=== PATIENT | male | born 1940 | race Caucasian/White ===

== ENCOUNTER 2018-12-11 12:10 | Emergency (ER) | payer MEDICARE ==
[2018-12-11 12:17] VITALS: BMI 24.3
[2018-12-11 12:22] VITALS: RESP 20; O2SAT 98
--- NOTE | 2018-12-11 13:20 | CT ---
Date of service: 12/11/2018 PROCEDURE: CT HEAD WITHOUT CONTRAST. HISTORY: s/p fall, head injury COMPARISON: Not available TECHNIQUE: Axial computed tomography images were obtained through the head/brain without intravenous contrast. Radiation dose: Total exam DLP = 868.15 mGy-cm. This CT exam was performed using one or more of the following dose reduction techniques: Automated exposure control, adjustment of the mA and/or kV according to patient size, and/or use of iterative reconstruction technique. FINDINGS: HEMORRHAGE: No intracranial hemorrhage. BRAIN: No mass effect or edema. Mild patchy periventricular and deep white matter lucency consistent with chronic microvascular ischemic change. No evidence of acute infarct. VENTRICLES: Unremarkable. No hydrocephalus. CALVARIUM: Unremarkable. PARANASAL SINUSES: Unremarkable as visualized. No significant inflammatory changes. MASTOID AIR CELLS: Unremarkable as visualized. No inflammatory changes. OTHER FINDINGS: None. IMPRESSION: No intracranial hemorrhage. Age related chronic white matter ischemic change. Otherwise unremarkable examination.
--- NOTE | 2018-12-11 13:47 | C.PDOC ---
History Of Present Illness 78 y/o male pt presents to the ER c/o slip and fall injury in his bath tub. Pt hit his right side of his forehead on the tub and right elbow. Pt denies LOC, headache, dizziness, visual changes, chest pain, SOB and palpitations. - HPI Time Seen by Provider: 12/11/18 12:13 Chief Complaint (Nursing): Trauma History Per: Patient History/Exam Limitations: no limitations Past Medical History Reviewed: Historical Data, Nursing Documentation, Vital Signs Vital Signs: Last Vital Signs Temp 98.1 F 12/11/18 12:17 Pulse 68 12/11/18 12:17 Resp 20 12/11/18 12:17 BP 179/90 H 12/11/18 12:17 Pulse Ox 98 12/11/18 12:17 Primary Care Provider: Prakash Wilson - Medical History PMH: HTN, Hypothyroidism Surgical History: Endoscopy Family History: States: No Known Family Hx - Social History Hx Alcohol Use: No Hx Substance Use: No - Immunization History Hx Tetanus Toxoid Vaccination: No Hx Influenza Vaccination: No Hx Pneumococcal Vaccination: No Review Of Systems Constitutional: Positive for: Other (right side of forehead injury ) Eyes: Negative for: Vision Change Cardiovascular: Negative for: Chest Pain, Palpitations Respiratory: Negative for: Shortness of Breath Musculoskeletal: Positive for: Other (right elbow injury ) Neurological: Negative for: Headache, Dizziness, Other (LOC) Physical Exam - Physical Exam Appears: Non-toxic, No Acute Distress Skin: Warm, Dry Head: Normacephalic, No Swelling, No Abrasion, No Laceration, Other (mild ecchymosis on the right forehead ) Eye(s): bilateral: PERRL, EOMI Nose: Normal, No Epistaxis Oral Mucosa: Moist Tongue: Normal Appearing, No Laceration Lips: Normal Appearing, No Laceration Gingiva: Normal Appearing Throat: Normal Neck: Normal ROM, Supple Chest: Symmetrical, No Deformity, No Tenderness, No Ecchymosis Cardiovascular: Rhythm Regular Respiratory: Normal Breath Sounds Gastrointestinal/Abdominal: Soft, No Tenderness Back: No CVA Tenderness Extremity: Normal ROM (FROM), Capillary Refill <2 Sec, No Deformity, No Swelling, Other (right elbow 2cm laceration ) Pulses: Right Radial: Normal Neurological/Psych: Oriented x3, Normal Speech, Normal Cognition, Normal Motor, Normal Sensation ED Course And Treatment O2 Sat by Pulse Oximetry: 98 (RA) Pulse Ox Interpretation: Normal - CT Scan/US ct head Other Rad Studies (CT/US): Read By Radiologist, Radiology Report Reviewed CT/US Interpretation: Accession No. : [id number]. Patient Name / ID : JOSE MONET / [id number]. Exam Date : 12/11/2018 12:55:34 ( Approved ). Study Comment : Sex / Age : M / 78Y. Creator : Linda Glasgow. Dictator : Prashanth Archuleta MD. Patient Navigator : Metal Hanger : Prashanth Archuleta MD. Approver2 : Report Date : 12/11/2018 12:59:57. My Comment : . Date of service: 12/11/2018. PROCEDURE: CT HEAD WITHOUT CONTRAST. HISTORY: s/p fall, head injury. COMPARISON: Not available. TECHNIQUE: Axial computed tomography images were obtained through the head/brain without i ntravenous contrast. Radiation dose: Total exam DLP = 868.15 mGy-cm. This CT exam was performed using one or more of the following dose reduction techniques: Automated exposure control, adjustment of the mA and/or kV according to patient size, and/or use of iterative reconstruction technique. FINDINGS: HEMORRHAGE: No intracranial hemorrhage. BRAIN: No mass effect or edema. Mild patchy per iventricular and deep white matter lucency consistent with chronic microvascular ischemic change. No evidence of acute infarct. VENTRICLES: Unremarkable. No hydrocephalus. CALVARIUM: Unremarkable. PARANASAL SINUSES: Unremarkable as visualized. No significant inflammatory changes. MASTOID AIR CELLS: Unremarkable as visualized. No inflammatory changes. OTHER FINDINGS: None. IMPRESSION: No intracranial hemorrhage. Age related chronic white matter ischemic change. Otherwise unremarkable examination. Progress Note: Plans: -- CT head. -- bacitracin. -- lidocaine 1%. -- laceration repair. Pharmacy was called to confrim that pt is not on any blood thinners. Laceration - Laceration Repair RIGHT ELBOW Wound Length (In cm): 2CM Description Of Wound: Linear Wound Cleansed With: Betadine Anesthesia: Lidocaine 1% (approx 4ml) Wound Examination: Irrigated With Saline, No FB With Wound Exploration Suture Technique And Material Used: Interrupted, Nylon (4 ethilon 4.0) Wound Complexity: Simple Disposition Counseled Patient/Family Regarding: Studies Performed, Diagnosis, Need For Followup, Rx Given - Disposition Referrals: Prakash Wilson MD [Staff Provider] - Disposition: HOME/ ROUTINE Disposition Time: 15:30 Condition: STABLE Additional Instructions: SUTURE REMOVAL IN 7-10 DAYS FOLLOW UP WITH YOUR DOCTOR IN 1-2 DAYS RETURN TO ER IF YOU HAVE ANY CONCERNING SYMPTOMS Instructions: Closed Head Injury (DC), Laceration Repair With Stitches (DC) Forms: [employer]Writer (Turkmen) Print Language: BURUNDIAN - Clinical Impression Clinical Impression: Closed head injury, Laceration of right elbow - Scribe Statement The provider has reviewed the documentation as recorded by the Diego Ruano Do Provider Attestation: All medical record entries made by the Jamesibprincess were at my direction and personally dictated by me. I have reviewed the chart and agree that the record accurately reflects my personal performance of the history, physical exam, medical decision making, and the department course for this patient. I have also personally directed, reviewed, and agree with the discharge instructions and disposition.
[2018-12-11] MEDS ORDERED: Bacitracin 500 Units/gm Oint Foilpak UD TOP ONE ×2 (14:37→15:25)
[2018-12-11] MEDS ORDERED: Lidocaine 1% Inj (20ml) INFIL STA (14:50)
[2018-12-11] MEDS ORDERED: Lidocaine 2% MPF (5 ml) Inj ONE (15:13)
[2018-12-11 15:56] VITALS: BP 183/84; PULSE 65; TEMP 98.4
== END 2018-12-11 15:56 | disposition home or self-care (01) ==
LOC: C.ER 12:10
DX: S00.83XA Contusion of other part of head, initial encounter (principal); S51.011A Laceration without foreign body of right elbow, initial encounter; W01.0XXA Fall on same level from slipping, tripping and stumbling without subsequent striking against object, initial encounter